=== PATIENT | female | born 1965 | race Caucasian/White ===

== ENCOUNTER 2017-12-17 15:33 | Emergency (ER) | payer OTHER ==
[2017-12-17] MEDS ORDERED: Metoclopramide IV* 5 MG/ML 2 ML VIAL IV ONE (17:09)
[2017-12-17] MEDS ORDERED: HYDROcodone/ACETAMIN 5-325 MG* 1 TAB PO ONE (17:09)
[2017-12-17] MEDS ORDERED: diPHENhydraMINE IV* 50 MG/ML 1 ml VIAL (BENADRYL) IV ONE (17:09)
[2017-12-17] MEDS ORDERED: NS 0.9% 1000 ML* 1,000 ML IV ONE (17:09)
[2017-12-17 17:29] LABS: ABS Basophils 0.1 10^3/ul (0-0.2); ABS Eosinophils 0.3 10^3/ul (0-0.6); ABS Lymphocytes 1.6 10^3/ul (1.0-4.8); ABS Monocytes 0.4 10^3/ul (0-0.8); ABS Neutrophils 3.7 10^3/ul (1.5-7.7); ABS Nucleated RBC 0 10^3/ul; Eosinophil % 4.3 % (0-6); Hematocrit 40 % (35-47); Hemoglobin 13.6 g/dl (12.0-16.0); Lymphocyte % 27.4 % (25-47); Mean Corpuscular HGB Conc 34 g/dl (31-36); Mean Corpuscular Hemoglobin 30 pg (27-31); Mean Corpuscular Volume 89 fL (80-97); Mean Platelet Volume 7.2 um3 (7.4-10.4); Nucleated Red Blood Cells % 0; Platelet Count 297 10^3/ul (150-450); Red Cell Distribution Width 14 % (10.5-15)
[2017-12-17 17:50] LABS: EGFR Non-African American 54.6 (>60)
--- NOTE | 2017-12-17 18:13 | RAD ---
INDICATION: Headache. COMPARISON: Comparison is made with a prior MRI of the brain from May 22, 2014. TECHNIQUE: Contiguous axial sections of the brain were obtained from the skull base to the vertex without contrast. FINDINGS: The ventricles, cisterns and sulci are within normal limits. No significant focal abnormality or mass effect is seen. There is no evidence for hemorrhage. No fracture is seen. There is mucosal thickening within the visualized portion of the ethmoid, frontal and sphenoid sinuses. The mastoid air cells appear clear. IMPRESSION: 1. NO EVIDENCE FOR ACUTE INTRACRANIAL ABNORMALITY. 2. FINDINGS SUGGESTIVE OF CHRONIC SINUSITIS.
--- NOTE | 2017-12-17 18:23 | RAD ---
INDICATION: Neck pain. COMPARISON: Comparison is made with a prior MRI of the cervical spine from March 23, 2013. TECHNIQUE: Contiguous axial sections were obtained from the skull base through the T2 vertebra. Images were reconstructed in the sagittal and coronal planes. FINDINGS: There is straightening of the cervical spine with loss of the normal cervical lordosis. No prevertebral soft tissue swelling or fracture is seen. There is spina bifida occulta posteriorly at the C1 level. At the C2-C3 level there are mild hypertrophic changes in the facet joints. No spinal canal or neural foraminal narrowing is seen. At the C3-C4 level there is hypertrophic change within the facet joint on the left side and mild posterior uncinate process spurring. No significant spinal canal narrowing is present. There is moderate neural foraminal narrowing on the left side. At the C4-C5 level there is mild to moderate posterior uncinate process spurring which causes mild to moderate spinal canal narrowing. There is mild neural foraminal narrowing on the right side and moderate neural foraminal are in the left side. At the C5-C6 level there is mild posterior uncinate process spurring associated with a mild broad-based disc bulge. There is mild to moderate spinal canal narrowing and mild bilateral neural foraminal narrowing. At the C6-C7 level there is partial fusion of the vertebral bodies. No significant spinal canal or neural foraminal narrowing is seen. At the C7-T1 level there appears to be mild posterior uncinate process spurring associated with a mild broad-based disc bulge. There is mild spinal canal narrowing and mild bilateral neural foraminal narrowing. There are nodules within the left lobe of the thyroid measuring up to 0.8 cm in size. The lung apices appear clear. IMPRESSION: 1. STRAIGHTENING OF THE CERVICAL SPINE POSSIBLY RELATED TO MUSCLE SPASM. 2. MILD TO MODERATE CERVICAL SPONDYLOSIS. IF THE PATIENT'S SYMPTOMS PERSIST RECOMMEND FOLLOW-UP MR IMAGING. 3. NODULES WITHIN THE THYROID GLAND, RECOMMEND A FOLLOW-UP OUTPATIENT ULTRASOUND FOR FURTHER EVALUATION.
--- NOTE | 2017-12-17 19:08 | ED ---
Omar Hedrick Stephanie, scribed for Ramón Acosta MD on 12/17/17 at 1711 . Headache - HPI Summary HPI Summary: The pt is a 52 y/o F presenting to the ED with c/o URIAS that began on 12/15/17 s/p head trauma. Symptoms include sensitivity to light touch. She reports the cover of her hot tub hit her over her head and her URIAS began shortly after that. She reports her pain is generalized and she has sensitivity to light touch over her L side of face. She also reports over the last few months she has developed headaches following orgasms that usually last about 1 hour post-onset. She reports hx of migraines with aura that subsided after menopause but have become more frequent over the last few months. - History Of Current Complaint Chief Complaint: EDHeadache Stated Complaint: HEADACHE Time Seen by Provider: 12/17/17 16:40 Hx Obtained From: Patient Onset/Duration: Gradual Onset, Started days ago, Still Present Currently Pain Is: Severe Timing: Intermittent, Lasting:, Hours - 1 Character: Migraine Location of Headache: Diffuse Aggravating Factor: Other - orgasms Allevating Factors: Nothing Associated Signs And Symptoms: Other (Noted In Comments) - facial sensitivity to light touch. - Allergies/Home Medications Allergies/Adverse Reactions: Allergies Allergy/AdvReac Type Severity Reaction Status Date / Time codeine Allergy Itching Verified 12/17/17 15:46 meperidine [From Demerol] Allergy Vomiting Verified 12/17/17 15:46 promethazine [From Phenergan] Allergy Seizures Verified 12/17/17 15:46 MONOSTAT Allergy Itching Uncoded 10/22/13 07:06 Home Medications: Home Medications Amphetamine/Dextroamph ER(NF) [Adderal XR (NF)] 20 mg PO QAM 12/17/17 [History Confirmed 12/17/17] Cholecalciferol TAB* [Vitamin D TAB*] 1,000 unit PO DAILY 12/17/17 [History Confirmed 12/17/17] DULoxetine CAP* [Cymbalta CAP*] 60 mg PO DAILY 12/17/17 [History Confirmed ] Fluticasone NASAL SPRAY 50MCG* [Flonase NASAL SPRAY 50MCG*] 2 spray BOTH NARES DAILY 12/17/17 [History Confirmed 12/17/17] Ibuprofen TAB* [Advil TAB*] 200 mg PO Q6H PRN 12/17/17 [History Confirmed ] Magnesium Oxide [Magnesium] 250 - 400 mg PO DAILY 12/17/17 [History Confirmed ] Multivitamins/Minerals TAB* [Theragran/minerals TAB*] 1 tab PO DAILY 12/17/17 [ History Confirmed 12/17/17] diPHENhydraMINE PO* [Benadryl PO 25 MG TAB*] 25 mg PO BEDTIME PRN 12/17/17 [ History Confirmed 12/17/17] PMH/Surg Hx/FS Hx/Imm Hx Endocrine/Hematology History: Reports: Hx Anticoagulant Therapy - post knee replacement, Hx Blood Disorders - platelet dysfunction, Hx Anemia, Hx Unexplained Bleeding - total knee replacement Denies: Hx Blood Transfusions, Hx Bone Marrow Disease, Hx Diabetes, Hx Systemic Lupus Erythematosus, Hx Sickle Cell Disease, Hx Thyroid Disease Cardiovascular History: Denies: Hx Congenital Heart Disease, Hx Hypertension, Hx Pacemaker/ICD Respiratory History: Reports: Hx Asthma - NOT ON MEDS, NO PROBLEMS IN WHILE, Hx Chronic Bronchitis, Hx Seasonal Allergies GI History: Reports: Hx Gastroesophageal Reflux Disease - ON MEDS History: Denies: Hx Renal Disease Musculoskeletal History: Reports: Hx Arthritis, Hx Back Problems - L4-5 to S1 herniated disc, Hx Orthopedic Injury - MCL/ACL tear left knee, Other Musculoskeletal History - DDD, CERVICAL & LUMBAR Sensory History: Reports: Hx Contacts or Glasses Denies: Hx Cataracts, Hx Hearing Aid Opthamlomology History: Reports: Hx Contacts or Glasses Denies: Hx Cataracts Neurological History: Reports: Hx Headaches, Hx Migraine, Hx Nerve Disease, Hx Seizures - with pheneregan, Other Neuro Impairments/Disorders - 1997 HAD SPINAL - SEVERE HEADACHES Denies: Hx Spinal Cord Injury, Hx Transient Ischemic Attacks (TIA) Psychiatric History: Reports: Hx Anxiety - ON MEDS DAILY, Hx Attention Deficit Hyperactivity Disorder, Hx Depression Denies: Hx Panic Disorder - Cancer History Hx Chemotherapy: No Hx Radiation Therapy: No - Surgical History Surgery Procedure, Year, and Place: 1991, 1993, - C SECTIONS; [facility]- 4 SURGERIES [facility]. 2007 LEFT TOTAL KNEE - TOTAL KNEE REPLACEMENT; @ [facility]. 1997 SINUS SURGERY. 2012 - Rt KNEE - ARTHROSCOPIC,OCT 2013 OOPHERECTOMY. 04/14 - ABD SURG - OVARIAN MASS - OOPHERECTOMY & MASS REMOVAL Hx Anesthesia Reactions: Yes - 1998 DURING SPINAL, SEIZURE, THINKSR/T PHENERGAN Infectious Disease History: No Infectious Disease History: Reports: Hx Shingles Denies: Traveled Outside the [place] in Last 30 Days - Family History Known Family History: Negative: Renal Disease - Social History Occupation: Employed Full-time Lives: With Family Alcohol Use: Occasionally Hx Substance Use: No Substance Use Type: Reports: None Hx Tobacco Use: No Smoking Status (MU): Never Smoked Tobacco Type: Cigarettes Have You Smoked in the Last Year: No Review of Systems Negative: Fever Neurological: Other - facial/ head sensitivity to light touch Positive: Headache All Other Systems Reviewed And Are Negative: Yes Physical Exam - Summary Physical Exam Summary: VITAL SIGNS: Reviewed. GENERAL: Patient is a well-developed and nourished FEMALE who is lying comfortable in the stretcher. Patient is not in any acute respiratory distress. HEAD AND FACE: No signs of trauma. No ecchymosis, hematomas or skull depressions. No sinus tenderness. EYES: PERRLA, EOMI x 2, No injected conjunctiva, no nystagmus. EARS: Hearing grossly intact. Ear canals and tympanic membranes are within normal limits. MOUTH: Oropharynx within normal limits. NECK: Supple, trachea is midline, no adenopathy, no JVD, no carotid bruit, no c- spine tenderness, neck with full ROM. CHEST: Symmetric, no tenderness at palpation LUNGS: Clear to auscultation bilaterally. No wheezing or crackles. CVS: Regular rate and rhythm, S1 and S2 present, no murmurs or gallops appreciated. ABDOMEN: Soft, non-tender. No signs of distention. No rebound no guarding, and no masses palpated. Bowel sounds are normal. EXTREMITIES: FROM in all major joints, no edema, no cyanosis or clubbing. NEURO: Alert and oriented x 3. No acute neurological deficits. Speech is normal and follows commands. SKIN: Dry and warm Triage Information Reviewed: Yes Vital Signs On Initial Exam: Initial Vitals Temp Pulse Resp BP Pulse Ox 97.5 F 82 16 159/95 100 12/17/17 15:42 12/17/17 15:42 12/17/17 15:42 12/17/17 15:42 12/17/17 15:42 Vital Signs Reviewed: Yes Diagnostics - Vital Signs Vital Signs Temp Pulse Resp BP Pulse Ox 12/17/17 15:42 97.5 F 82 16 159/95 100 - Laboratory Lab Results: Lab Results 12/17/17 12/17/17 12/17/17 Range/Units 17:20 17:20 17:20 WBC 6.0 (3.5-10.8) 10^3/ul RBC 4.50 (4.00-5.40) 10^6/ul Hgb 13.6 (12.0-16.0) g/dl Hct 40 (35-47) % MCV 89 (80-97) fL MCH 30 (27-31) pg MCHC 34 (31-36) g/dl RDW 14 (10.5-15) % Plt Count 297 (150-450) 10^3/ul MPV 7.2 L (7.4-10.4) um3 Neut % (Auto) 61.1 (38-83) % Lymph % (Auto) 27.4 (25-47) % Russell % (Auto) 6.3 (0-7) % Eos % (Auto) 4.3 (0-6) % Baso % (Auto) 0.9 (0-2) % Absolute Neuts (auto) 3.7 (1.5-7.7) 10^3/ul Absolute Lymphs (auto) 1.6 (1.0-4.8) 10^3/ul Absolute Monos (auto) 0.4 (0-0.8) 10^3/ul Absolute Eos (auto) 0.3 (0-0.6) 10^3/ul Absolute Basos (auto) 0.1 (0-0.2) 10^3/ul Absolute Nucleated RBC 0 10^3/ul Nucleated RBC % 0 ESR Pending Carbon Monoxide Screen (<4.0) % Sodium 139 (135-145) mmol/L Potassium 4.1 (3.5-5.0) mmol/L Chloride 104 (101-111) mmol/L Carbon Dioxide 27 (22-32) mmol/L Anion Gap 8 (2-11) mmol/L BUN 19 (6-24) mg/dL Creatinine 1.05 H (0.51-0.95) mg/dL Est GFR ( Amer) 70.2 (>60) Est GFR (Non-Af Amer) 54.6 (>60) BUN/Creatinine Ratio 18.1 (8-20) Glucose 105 H (70-100) mg/dL Lactic Acid 0.7 (0.5-2.0) mmol/L Calcium 9.6 (8.6-10.3) mg/dL Total Bilirubin 0.40 (0.2-1.0) mg/dL AST 17 (13-39) U/L ALT 15 (7-52) U/L Alkaline Phosphatase 48 (34-104) U/L Total Protein 6.6 (6.4-8.9) g/dL Albumin 4.3 (3.2-5.2) g/dL Globulin 2.3 (2-4) g/dL Albumin/Globulin Ratio 1.9 (1-3) //18 Range/Units 17:20 WBC (3.5-10.8) 10^3/ul RBC (4.00-5.40) 10^6/ul Hgb (12.0-16.0) g/dl Hct (35-47) % MCV (80-97) fL MCH (27-31) pg MCHC (31-36) g/dl RDW (10.5-15) % Plt Count (150-450) 10^3/ul MPV (7.4-10.4) um3 Neut % (Auto) (38-83) % Lymph % (Auto) (25-47) % Russell % (Auto) (0-7) % Eos % (Auto) (0-6) % Baso % (Auto) (0-2) % Absolute Neuts (auto) (1.5-7.7) 10^3/ul Absolute Lymphs (auto) (1.0-4.8) 10^3/ul Absolute Monos (auto) (0-0.8) 10^3/ul Absolute Eos (auto) (0-0.6) 10^3/ul Absolute Basos (auto) (0-0.2) 10^3/ul Absolute Nucleated RBC 10^3/ul Nucleated RBC % ESR Carbon Monoxide Screen < 4 (<4.0) % Sodium (135-145) mmol/L Potassium (3.5-5.0) mmol/L Chloride (101-111) mmol/L Carbon Dioxide (22-32) mmol/L Anion Gap (2-11) mmol/L BUN (6-24) mg/dL Creatinine (0.51-0.95) mg/dL Est GFR ( Amer) (>60) Est GFR (Non-Af Amer) (>60) BUN/Creatinine Ratio (8-20) Glucose (70-100) mg/dL Lactic Acid (0.5-2.0) mmol/L Calcium (8.6-10.3) mg/dL Total Bilirubin (0.2-1.0) mg/dL AST (13-39) U/L ALT (7-52) U/L Alkaline Phosphatase (34-104) U/L Total Protein (6.4-8.9) g/dL Albumin (3.2-5.2) g/dL Globulin (2-4) g/dL Albumin/Globulin Ratio (1-3) Result Diagrams: 12/17/17 17:20 12/17/17 17:20 Lab Statement: Any lab studies that have been ordered have been reviewed, and results considered in the medical decision making process. - CT Brain CT Interpretation: No Acute Changes CT Interpretation Completed By: Radiologist - 1. NO EVIDENCE FOR ACUTE INTRACRANIAL ABNORMALITY. 2. FINDINGS SUGGESTIVE OF CHRONIC SINUSITIS. ED physician has reviewed this report. Cervical Spine CT Interpretation: Positive (See Comments) CT Interpretation Completed By: Radiologist - 1. STRAIGHTENING OF THE CERVICAL SPINE POSSIBLY RELATED TO MUSCLE SPASM. 2. MILD TO MODERATE CERVICAL SPONDYLOSIS. IF THE PATIENT'S SYMPTOMS PERSIST RECOMMEND FOLLOW-UP MR IMAGING. 3. NODULES WITHIN THE THYROID GLAND, RECOMMEND A FOLLOW-UP OUTPATIENT ULTRASOUND FOR FURTHER EVALUATION. ED physician has reviewed this report. ____ <Electronically signed by Leonel Meyers MD in [place]> 12/17/171818 Dictated By: Leonel Meyers MD Dictated Date/Time: 12/17/171818 Transcribed Date/Time: 12/17/171809 Copy to: 1 of 2 Re-Evaluation - Re-Evaluation First Eval Re-Evaluation Time: 19:05 Change: Improved - The pt states she feels better at this time. ED physician discussed plan of discharge with the pt and the pt understands and agrees. Headache Course/Dx - Course Assessment/Plan: Blood test results without any significant abnormality. Head CT shows no integument pathology. C-spine CT no acute fracture dislocation. In the ED course the patient was given IV fluids, she was given Reglan and Benadryl for the headache. At his medications were given the symptoms have resolved. At this point the patient reports that she is feeling better she normal has a headache therefore she will be discharged home with follow-up with PCP. I discussed all the findings and test results with the patient. Patient was instructed to return to the emergency room immediately if any of the symptoms return or worsens. Plan of care was discussed with the patient and understands and agrees. All questions were answered at patient satisfaction. There were no further complaints or concerns. Lung exam before discharge: CTA B /L. Good air exchange. No wheezing or crackles heard. CVS: S1 and S2 present. No murmurs appreciated. Patient is alert and oriented x 3. Patient is hemodynamically stable. Patient will be discharged home with follow up PCP in the next 2-3 days - Diagnoses Differential Diagnosis/HQI/PQRI: Migraine, Sinus Headache, Tension Headache Provider Diagnoses: Headache Discharge - Sign-Out/Discharge Documenting (check all that apply): Discharge/Admit/Transfer - Discharge - Discharge Plan Condition: Stable Disposition: HOME Patient Education Materials: Acute Headache (ED) Referrals: Alyx Bain MD [Primary Care Provider] - Additional Instructions: Return to the ED for new or worsening symptoms. - Billing Disposition and Condition Condition: STABLE Disposition: Home The documentation as recorded by the Omar howard Stephanie accurately reflects the service I personally performed and the decisions made by me, Ramón Acosta MD.
[2017-12-17 19:23] VITALS: BP 133/78
== END 2017-12-17 19:21 | disposition home or self-care (01) ==
LOC: ED 15:33
DX: R51 Headache (principal); Z79.01 Long term (current) use of anticoagulants; Z96.652 Presence of left artificial knee joint; Z87.19 Personal history of other diseases of the digestive system
CPT/HCPCS: 36415; 70450; 72125; 80053; 82375; 83605; 83735; 84439; 84443; 85025; 85652; 86038; 86140; 86431; 86618; 99282; J1200; J2765